=== PATIENT | male | born 1960 | race Caucasian/White ===

== ENCOUNTER 2018-03-19 08:37 | Outpatient (CLI) | payer OTHER ==
[2018-03-19 09:05] VITALS: BMI 38.0
[2018-03-19 10:14] LABS: Hemoglobin 16.2 g/dL (14.0-18.0); Mean Corpuscular HGB CONC 32.6 g/dL (32.0-36.0); Mean Corpuscular Hemoglobin 29.1 pg (27.0-31.0); Mean Corpuscular Volume 89.2 fL (78.0-98.0); Mean Platelet Volume 7.6 fL (7.4-10.4); Platelet Count 179 thou/uL (130-400); RBC Distribution Width 12.8 % (11.5-14.5); Red Blood Cell (RBC) Count 5.58 mill/uL (4.70-6.10); White Blood Cell (WBC) Count 6.2 thou/uL (4.8-10.8)
[2018-03-19 10:22] LABS: PTT 25.8 SEC (22.9-36.1); Prothrombin Time 13.2 SEC (12.0-14.7)
== END 2018-03-19 08:38 | disposition home or self-care (01) ==
LOC: LABBT 08:37
PROVIDERS: ATTEND Neurological Surgery
DX: Z01.818 Encounter for other preprocedural examination (principal); M48.061 Spinal stenosis, lumbar region without neurogenic claudication
CPT/HCPCS: 85027; 85610; 85730; 93005; 93010

== ENCOUNTER 2018-03-19 09:00 | Inpatient (IN) | payer OTHER ==
--- NOTE | 2018-03-25 09:23 | HP ---
HISTORY OF PRESENT ILLNESS: This is a 57-year-old male, who reports to the office for evaluation of lumbar back pain and right leg foot drop. The patient states that he has had back pain for many year s, worse with standing and relieved with sitting. If he goes grocery shopping, he has to sit in the car or uses a cart to get around. He states that recently he started experiencing right leg foot naveed p. He saw the orthopedist, who referred him to Neurology and then to us. The patient states that he has gotten massage therapy, chiropractor work with minimal relief. He denies any physical therapy o r injections. REVIEW OF SYSTEMS: Ten-point review of systems has been completed and is negative other than stated in the HPI above. PAST MEDICAL HISTORY: Shortness of breath, sleep apnea, hypertension, depression, restless sleep, hy pothyroidism, morbid obesity, post-gastric sleeve. PAST SURGICAL HISTORY: Arthroscopy of both knees, laparoscopic sleeve gastrotomy in 2012, tonsillect chacha. FAMILY HISTORY: Father is alive, diagnosed with hypertension and stroke. Mother is , arthri tis, kidney problems, and breast cancer. SOCIAL HISTORY: Patient is a nonsmoker, does not drink alcohol or use any other illicit drugs. The patient is with children. MEDICATIONS: Lisinopril, levothyroxine, fluoxetine, Naproxen. ALLERGIES: No known drug allergies. OBJECTIVE: CONSTITUTIONAL: The patient is well-appearing, well-nourished, alert. HEENT: Head is normocephalic, atraumatic. Pupils are equal, round, and reactive to light. Extraocu lar movements are intact. Hearing is intact. Moist mucous membranes. RESPIRATORY: Normal work of breathing on room air. CARDIAC: Normal S1 and S2, regular rate and rhythm. NEUROLOGIC: Mental Status: Oriented to time, place, person. Normal attention span and concentratio n. Speech is spontaneous and fluent. Comprehension is intact. Content is appropriate and normal fu nd of knowledge. Cranial nerves: Cranial nerves II-XII are grossly intact. Motor: Muscle strength normal in lower extremities. Muscle tone and bulk normal in lower extremities, 5/5 bilateral streng th in IP, KE, KF, PF; 4/5 strength in right dorsiflexion and EHL. No radiculopathy. Negative single leg raise bilaterally. Rotation of bilateral hips normal. Tender to palpate at L4-L5 bilateral SI joints. Deep tendon reflexes are diminished. Sensory to light touch intact. Gait and Station: Sit to standing slow. Slow gait. IMAGING: MRI of the lumbar spine, significant central stenosis at L1-L2, L2-L3, lateral recess steno sis at L4-L5 and significant right L5-S1 foraminal stenosis. ASSESSMENT AND PLAN: Lumbar stenosis with neurogenic claudication. Dr. Whitt has offered surger y, laminectomy T12 through L3 through S1 laminectomy with transforaminal lumbar interbody fusion.
[2018-03-26] MEDS ORDERED: Bupivacaine HCl 0.5%/Epinephrine 1:200,000/PF 30 ml Vial ONE (06:17)
[2018-03-26] MEDS ORDERED: Sodium Chloride 0.9% 30 ML ONE (06:17)
[2018-03-26] MEDS ORDERED: Thrombin 5000 UNITS/5 ML VIAL ONE ×2 (06:17→15:53)
[2018-03-26] MEDS ORDERED: CEFAZOLIN 2 GM/50 ML BAG ONE (06:21)
[2018-03-26] MEDS ORDERED: Midazolam HCl 2 mg/2 ml Vial ONE (06:34)
[2018-03-26] MEDS ORDERED: Fentanyl 250 MCG/5 ML VIAL ONE (06:47)
[2018-03-26] MEDS ORDERED: Phenylephrine HCL 10 MG/ML VIAL ONE (06:47)
[2018-03-26] MEDS ORDERED: Albumin 5% 0 ML ONE (06:48)
[2018-03-26] MEDS ORDERED: Albumin 5% 500 ML ONE ×2 (06:48→13:19)
[2018-03-26] MEDS ORDERED: Rocuronium Bromide 50 MG/5 ML VIAL ONE ×2 (11:12→13:16)
[2018-03-26] MEDS ORDERED: Fentanyl 100 MCG/2 ML VIAL ONE ×4 (11:29→16:31)
[2018-03-26 13:52] LABS: Hemoglobin 13.4 g/dL (14.0-18.0)
[2018-03-26] MEDS ORDERED: HYDROmorphone 2 MG/ML VIAL SLOW IVP PRN (14:17)
[2018-03-26] MEDS ORDERED: Morphine Sulfate 2 MG/ML SYRINGE SLOW IVP PRN (14:17)
[2018-03-26] MEDS ORDERED: Meperidine HCl/PF 25 MG/ML VIAL SLOW IVP PRN (14:17)
[2018-03-26] MEDS ORDERED: PACU-Morphine 4MG/ML VIAL SLOW IVP PRN (14:17)
[2018-03-26] MEDS ORDERED: Promethazine HCl 25 MG/ML VIAL IM PRN ×2 (14:17→15:41)
[2018-03-26] MEDS ORDERED: Ondansetron HCl/PF 4 MG/2 ML Vial IVP PRN (14:17)
[2018-03-26] MEDS ORDERED: Promethazine HCl 25 MG/ML VIAL SLOW IVP PRN (14:17)
[2018-03-26] MEDS ORDERED: Promethazine HCl 25 MG/ML VIAL ONE ×2 (14:31)
[2018-03-26] MEDS ORDERED: Ondansetron PF 4 MG/2 ML Vial IVP PRN (15:41)
[2018-03-26] MEDS ORDERED: Morphine 2 MG/ML SYRINGE SLOW IVP PRN (15:41)
[2018-03-26] MEDS ORDERED: diphenhydrAMINE 25 MG CAP PO PRN (15:41)
[2018-03-26] MEDS ORDERED: Promethazine 25 MG TAB PO PRN (15:41)
[2018-03-26] MEDS ORDERED: Mag-Al 1200 mg/1200 mg/30 ML UDCUP PO PRN (15:41)
[2018-03-26] MEDS ORDERED: Acetaminophen/Codeine 30-300mg Tablet PO PRN (15:41)
[2018-03-26] MEDS ORDERED: diphenhydrAMINE 50 MG/ML VIAL IVP PRN (15:41)
[2018-03-26] MEDS ORDERED: Acetaminophen 325 MG TAB PO PRN (15:41)
[2018-03-26] MEDS ORDERED: Milk Of Magnesia 30 ML UDCUP PO PRN (15:41)
[2018-03-26] MEDS ORDERED: Acetaminophen 650 MG Suppository PR PRN (15:41)
[2018-03-26] MEDS ORDERED: Glycopyrrolate 0.2 MG/ML 5 ML SYRINGE ONE (15:53)
[2018-03-26] MEDS ORDERED: Lidocaine 1% PF 5 ML VIAL ONE (15:53)
[2018-03-26] MEDS ORDERED: Metoclopramide HCl 10 MG/2 ML VIAL ONE (15:53)
[2018-03-26] MEDS ORDERED: PHENYLEPHRINE-NS 100 MCG/ML 10 ML SYRINGE ONE (15:53)
[2018-03-26] MEDS ORDERED: Ondansetron PF 4 MG/2 ML Vial ONE (15:53)
[2018-03-26] MEDS ORDERED: Vecuronium 10 MG VIAL ONE (15:53)
[2018-03-26] MEDS ORDERED: Dexamethasone 20 MG/5 ML VIAL ONE (15:53)
[2018-03-26] MEDS ORDERED: PROPOFOL 200 MG/20 ML VIAL ONE (15:53)
[2018-03-26] MEDS ORDERED: CEFAZOLIN 2 GM/50 ML BAG IVPB SCH (16:00)
[2018-03-26 17:57] VITALS: BMI 39.6
--- NOTE | 2018-03-26 19:51 | OP ---
DATE OF PROCEDURE: 03/26/2018 SURGEON: Melanie Whitt M.D. NURSE TECHNICIAN: Radha Stacy PA-C PREOPERATIVE INDICATION: Treat pain, prevent neurological deterioration. PREOPERATIVE DIAGNOSES: Multilevel thoracolumbar spinal stenosis with neurogenic claudication, right L4-L5 lateral recess stenosis, right L5-S1 severe foraminal stenosis with right L5 radiculopathy and foot drop. POSTOPERATIVE DIAGNOSES: Multilevel thoracolumbar spinal stenosis with neurogenic claudication, righ t L4-L5 lateral recess stenosis, right L5-S1 severe foraminal stenosis with right L5 radiculopathy an d foot drop. OPERATIVE PROCEDURE: Decompressive laminectomy, medial facetectomy, foraminotomy T12-L1, L1-L2, L2-L 3, decompressive laminectomy, medial facetectomy, foraminotomy L4-5 and L5-S1, complete facetectomy L 5-S1, transforaminal lumbar interbody arthrodesis L5-S1, placement of intervertebral biomechanical de vice L5-S1, pedicle screw and diana instrumentation L5-S1, posterolateral arthrodesis L5-S1, local mors elized autograft, morselized allograft. PREOPERATIVE MEDICATION: Ancef 2 grams IV. DRAIN NUMBER: One. DRAIN TYPE: 10 [place]. OPERATIVE DICTATION: The patient was brought to the operating room. General endotracheal anesthesia was induced. The patient was positioned prone on the Jordan frame with appropriate padding for the chest and hips. A lateral fluoro radiograph was used to plan our incision. The lumbar skin was natalya rilely prepped and draped. We opened the inferior half of the incision with a 10-blade knife and con trolled bleeding with bipolar and monopolar cautery. We used monopolar cautery to dissect through arnold bcutaneous tissues to the thoracodorsal fascia. We incised the fascia in the midline and we reflecte d the paraspinal muscles off the spinous process and lamina from L3 to the sacrum. A self-retaining retractor was placed and a lateral fluoro radiograph was used to confirm the levels upon which we wer e operating. We then carried our dissection over the facet joints at L4-5 and L5-S1 to identify the transverse processes of L5 and the sacral ala bilaterally. Self-retaining retractor was left. We st arted with our decompression from L4-S1. We used Adson rongeur to remove the spinous process of L4-L 5 and the superior portion of the sacrum. Using a Kerrison rongeur, we fashioned a laminectomy. We widened our laminectomy defect by performing medial facetectomies at L4-5 and L5-S1 bilaterally. We identified the traversing and exiting L5 nerve roots and S1 nerve roots. We ensured that the neural foramina were widely patent around the L4-5 and S1 nerve roots. On the right at L5-S1, there was sig nificant stenosis. We removed the facet joint at L5-S1 on the right side. Then, with a high-speed d rill and josé miguel bit, we drilled out the pars and articularis and opened the foramen. Here, the nerv e root was trapped between the lateral osteophyte off the inferior margin of the L5 vertebral body an d the L5 pedicle. With a high-speed drill in the disk space, we created an eggshell out of the osteo phyte and then using careful pushing curettes, we reduced this lateral osteophyte into the disk space and removed multiple fragments. This decompressed at least 4 cm in the proximal portion of the nerv e root. Still distally, there was a little bit of compression left. As carefully as we could, we us ed curettes to create more room for the nerve by scraping osteophyte from its undersurface until a Mu rphy ball probe could pass under the pedicle with the nerve root and out into the paraspinal space wi thout any impingement. We irrigated copiously with bacitracin irrigation and turned our attention to arthrodesis. Because entire pars and articularis and the facet joint were removed, we stabilized L5 -S1 joint. We incised the disk space with an 11 blade knife and removed disk contents using curettes and rongeurs. We measured the height of the interspace to 11 mm with a bone rasp. An 11 mm PEEK in tervertebral graft was brought into the field. This was loaded with our demineralized bone matrix an d morselized autograft. The autograft was carefully prepared on the back table from our laminectomy bone, which was cleaned of all soft tissue attachments, morselized and then added to demineralized jim ne matrix to form our fusion substrate. With the PEEK graft loaded with our fusion substrate, was ad vanced into the interspace under radiographic guidance to the appropriate depth. We then turned our attention to pedicle screw instrumentation at L5-S1. Using bony anatomic landmarks, palpation of the medial portion of the pedicles, and a lateral fluoro radiograph as a guide, we chose entry points fo r pedicle screws at L5 and S1 bilaterally. We placed 6.5 x 55 mm screws at L5 and S1 on each side. A 360-degree image set was generated with our isocentric C-arm. This confirmed adequate positioning of our instrumentation. We then brought rods down in the screw heads and tightened caps over the diana s. Using a dfokth-eygxbwk-vbznew mechanism, we ensured adequate tightness. Before final tightening, we applied compression across the interspace to keep our interbody graft in place. A Ann ball pr obe could still leave the spine with the L5 nerve root on either side without impingement. The poste rior lateral arthrodesis was left until after higher thoracolumbar decompression. It was irrigated c opiously with bacitracin irrigation and turned our attention to T12 to the top of L3. We opened the remainder of her incision and using bipolar and monopolar cautery, we achieved hemostasis. We used m onopolar cautery to dissect through subcutaneous tissues to the thoracodorsal fascia. We incised the fascia in the midline and reflected the paraspinal muscles off the spinous process and lamina of T12 -L3. A lateral fluoro radiograph confirmed the levels upon which we were operating. I used a high-s peed drill to thin the laminae an Adson rongeur to remove the spinous processes. We then used Kerris on rongeurs to fashion laminectomy from the top of L3 to the top of T12, we widened our laminectomy d efect by performing medial facetectomies at T12-L1, L1-L2, L2-L3 and performed foraminotomies over th e exiting nerve roots. A Ann ball probe could pass through the entire spinal segment and exit the spine with each of the nerve roots on either side from T12-L3 without impingement. We irrigated cop examiner iously with bacitracin irrigation. We waxed the bone edges. We controlled bleeding with gentle bipo lar cautery. We turned our attention to posterolateral arthrodesis at L5-S1. Using high speed drill , we decorticated the transverse processes of L5 and the sacral ala bilaterally. Over the decorticat ed bone, we left demineralized bone matrix and morselized autograft. We then tunneled the drain infe riorly through a separate stab incision. We closed the wound in anatomic layers after treating it wi th vancomycin powder. We infused local anesthetic in the paraspinal muscles. After multi-layer clos ure, we applied a sterile dressing. This was a clean case and no contamination.
[2018-03-26] MEDS: Acetaminophen/Codeine 30-300mg Tablet PO PRN (20:47)
[2018-03-26] MEDS: CEFAZOLIN 2 GM/50 ML BAG IVPB SCH (20:51)
[2018-03-27] MEDS: Acetaminophen/Codeine 30-300mg Tablet PO PRN ×5 (04:10→21:11)
[2018-03-27] MEDS: CEFAZOLIN 2 GM/50 ML BAG IVPB SCH ×3 (04:10→21:07)
[2018-03-27] MEDS: Sodium Chloride 0.9% 1,000 ML IV SCH ×2 (04:11→19:37)
[2018-03-27 04:41] LABS: Hemoglobin 11.5 g/dL (14.0-18.0)
[2018-03-27] MEDS: Levothyroxine Sodium 75 MCG TAB PO SCH (06:44)
[2018-03-27] MEDS: Tamsulosin HCl 0.4 MG CAP PO SCH (06:44)
--- NOTE | 2018-03-27 07:25 | PRG ---
DATE OF SERVICE: 03/27/2018 Mr. Hardwick is 1 day out from a long segment decompression of lumbar spine as well as an L5-S1 T-lift. He has no pain in the gluteal area that he had before surgery, there is no pain radiating down the le gs. He can control his right foot well. The foot drop he had before surgery is improved. There is some weakness in the EHL on the right compared to left, but it is clearly at least 4/5 strength. Mr. Hardwick will be mobilized with the assistance of Physical Therapy today. He has understandable tigh t sensation in the paraspinal muscles of the back when he tries to roll over, which is what we expect . Once he is in the sitting position. The brace can be applied and then he can stand and walk with physical therapy. We will leave the drain in today to collect fluid. He has not been out of bed and walking enough for me to safely remove the drain yet and the output will be watched closely.
[2018-03-27] MEDS: Lisinopril 10 MG TAB PO SCH (08:45)
[2018-03-27] MEDS: Cyanocobalamin (Vitamin B-12) 1,000 MCG TAB PO SCH (08:45)
[2018-03-27] MEDS: Stress 600 With Zinc 1 TAB PO SCH (08:45)
[2018-03-27] MEDS: FLUoxetine HCl 20 MG CAP PO SCH (08:45)
[2018-03-27] MEDS: tiZANidine HCl 4 MG TAB PO PRN ×2 (12:31→21:12)
[2018-03-28] MEDS: Acetaminophen/Codeine 30-300mg Tablet PO PRN ×5 (02:31→20:55)
[2018-03-28] MEDS: tiZANidine HCl 4 MG TAB PO PRN ×3 (03:51→20:55)
[2018-03-28] MEDS: CEFAZOLIN 2 GM/50 ML BAG IVPB SCH ×3 (04:56→20:58)
[2018-03-28] MEDS: Levothyroxine Sodium 75 MCG TAB PO SCH (05:02)
[2018-03-28] MEDS: Tamsulosin HCl 0.4 MG CAP PO SCH (05:02)
--- NOTE | 2018-03-28 07:23 | PRG ---
DATE OF SERVICE: 03/28/2018 Mr. Hardwick is 2 days out from decompression fusion of the lumbar spine. He got up out of bed yesterday . The first time out of bed was significantly difficult, he made at about 5 feet in his room before he had to return to the bed and sit down. Second time up, he made it to the hallway. He got progres sively better each time he got out of bed. The drain is still putting out a significant amount, it c annot be removed safely. We will continue antibiotic therapy and keep the drain in. He will continu e to work with physical therapy. Once the drain tapers off and he is independent for activities of d aily living, he can be discharged home.
[2018-03-28] MEDS: FLUoxetine HCl 20 MG CAP PO SCH (08:32)
[2018-03-28] MEDS: Cyanocobalamin (Vitamin B-12) 1,000 MCG TAB PO SCH (08:33)
[2018-03-28] MEDS: Lisinopril 10 MG TAB PO SCH (08:34)
[2018-03-28] MEDS: Stress 600 With Zinc 1 TAB PO SCH (08:34)
[2018-03-28] MEDS: Sodium Chloride 0.9% 1,000 ML IV SCH ×2 (09:35→22:22)
[2018-03-29] MEDS: Acetaminophen/Codeine 30-300mg Tablet PO PRN ×4 (00:28→10:56)
[2018-03-29] MEDS: CEFAZOLIN 2 GM/50 ML BAG IVPB SCH ×2 (03:36→10:56)
[2018-03-29] MEDS: tiZANidine HCl 4 MG TAB PO PRN ×2 (03:41→10:56)
[2018-03-29] MEDS: Tamsulosin HCl 0.4 MG CAP PO SCH (05:33)
[2018-03-29] MEDS: Levothyroxine Sodium 75 MCG TAB PO SCH (05:33)
[2018-03-29 07:47] VITALS: TEMP 97.9
[2018-03-29] MEDS: Stress 600 With Zinc 1 TAB PO SCH (09:43)
[2018-03-29] MEDS: FLUoxetine HCl 20 MG CAP PO SCH (09:43)
[2018-03-29] MEDS: Lisinopril 10 MG TAB PO SCH (09:44)
[2018-03-29] MEDS: Cyanocobalamin (Vitamin B-12) 1,000 MCG TAB PO SCH (09:44)
--- NOTE | 2018-03-29 10:52 | PRG ---
DATE OF SERVICE: 03/29/2018 SUBJECTIVE: I saw Mr. Daniel Hardwick in his hospital room this morning. I noticed that his drain output h as tapered off significantly, which is much better day yesterday than the day before. He is becoming more mobile and thinks he can manage getting in and out of bed at home on his own. Over the night, vital signs have been stable. Neurological examination is quite reassuring. He know s how to on and off his brace and I think he is ready for discharge. We went over ongoing medication s, activity restrictions, followup arrangements and wound care and he expresses understanding.
[2018-03-29 11:15] VITALS: BP 123/77
[2018-03-29] MEDS: Sodium Chloride 0.9% 1,000 ML IV SCH (11:41)
== END 2018-03-29 11:58 | disposition home or self-care (01) | DRG 455 ==
LOC: SURG A 03-26 05:42
PROVIDERS: ADMIT Neurological Surgery; ATTEND Neurological Surgery
PROC: 0SG30AJ Fusion of Lumbosacral Joint with Interbody Fusion Device, Posterior Approach, Anterior Column, Open Approach (ICD-10-PCS; principal; 2018-03-26)
PROC: 0SG3071 Fusion of Lumbosacral Joint with Autologous Tissue Substitute, Posterior Approach, Posterior Column, Open Approach (ICD-10-PCS; 2018-03-26)
PROC: 01NB0ZZ Release Lumbar Nerve, Open Approach (ICD-10-PCS; 2018-03-26)
PROC: 0P9 Upper Bones, Drainage (ICD-10-PCS; 2018-03-26)
DX: M48.05 Spinal stenosis, thoracolumbar region (principal); I10 Essential (primary) hypertension; F32.9 Major depressive disorder, single episode, unspecified; E03.9 Hypothyroidism, unspecified; G47.30 Sleep apnea, unspecified; Z98.84 Bariatric surgery status; M54.16 Radiculopathy, lumbar region; M21.371 Foot drop, right foot; E66.01 Morbid (severe) obesity due to excess calories; Z68.39 Body mass index [BMI] 39.0-39.9, adult
CPT/HCPCS: 36415; 76001; 85014; 85018; C1713; C1768; G8978-GP-CL; G8979-GP-CJ; G8987-GO-CK; G8988-GO-CI; J0131; J0670; J1100; J2001; J2250; J2370; J2405; J2550; J2704; J2765; J3010; J3370; J3490; P9045

== ENCOUNTER 2018-05-21 14:20 | Outpatient (CLI) | payer OTHER ==
--- NOTE | 2018-05-21 16:15 | RAD ---
THREE VIEWS THORACIC SPINE 05/21/18 HISTORY: Followup surgery. FINDINGS: Multilevel osteophytes are seen within the thoracic spine with prominent bridging osteophytes greates t involving the mid thoracic spine. Minimal physiologic wedging of the T12 vertebral body, but there are also slight wedge shaped deformities involving a few mid thoracic vertebral bodies which may also be physiologic in origin, although minimal compression deformities of indeterminate age cannot be en tirely excluded based on this exam. There is no evidence of a subluxation present. Vascular calcifica tions seen in the thoracic aorta. IMPRESSION: 1. Multilevel degenerative changes throughout the thoracic spine which have certainly progressed when compared to a chest x-ray obtained in 2012. 2. There are a few scattered minimal wedge shaped deformities of a few mid thoracic vertebral jim dies which may represent mild physiologic wedging, but due to overlying ribs and osseous structures, a more acute fracture would be difficult to entirely exclude. If there is clinical concern for fractu re of the thoracic spine, a CT scan versus MRI would be more helpful for further evaluation. There is no subluxation. POS: [facility]
--- NOTE | 2018-05-21 17:14 | RAD ---
THREE VIEWS LUMBAR SPINE: DATE: 05/21/2018., HISTORY: Followup postsurgical changes of lumbar spine. COMPARISON: None available. FINDINGS: There are 5 [id number] lumbar-type vertebral bodies. Laminectomy defects are seen throughout th e lumbar spine. There are postsurgical changes related to posterior fusion at the lumbosacral juncti on and bipedicular screws and posterior rods transfixing the L5-S1 level. Intradiskal prosthesis is noted in place. There is slight exaggerated kyphosis of the thoracolumbar spine centered at the level of the L2 verte bral body. There is narrowing of the intervertebral disk spaces at all levels of the lumbar spine wi th multilevel osteophytes present. No fracture or subluxation is seen. Vertebral body heights appea r to be within normal limits. IMPRESSION: 1. Postsurgical changes and degenerative changes involving the lumbar spine as described above. 2. Exaggerated kyphosis thoracolumbar spine centered at the level of the L2 vertebral body. POS: [facility]
== END 2018-05-21 14:21 | disposition home or self-care (01) ==
LOC: TBSIIMAG 14:20
PROVIDERS: ATTEND Neurological Surgery
DX: M47.26 Other spondylosis with radiculopathy, lumbar region (principal); M43.16 Spondylolisthesis, lumbar region; M51.16 Intervertebral disc disorders with radiculopathy, lumbar region; M41.9 Scoliosis, unspecified; M47.814 Spondylosis without myelopathy or radiculopathy, thoracic region; M43.8X4 Other specified deforming dorsopathies, thoracic region; Z98.1 Arthrodesis status
CPT/HCPCS: 72072; 72100